=== PATIENT | male | born 1960 | race African-American/Black ===

== ENCOUNTER 2021-01-06 14:29 | Inpatient (IN) | payer SELFPAY ==
[~2021-01-06] VITALS: Ht 177.8 cm; Wt 116.8 kg
[2021-01-06 14:47] VITALS: Ht 177.8 cm; Wt 116.8 kg
[2021-01-06 17:28] LABS: BASOPHIL % 0.5 % (0.2-1.5); PLATELET COUNT 203 x10^3mcL (152-348); RED CELL DISTRIBUTION WIDTH 13.4 % (12.1-16.2)
[2021-01-06 17:57] LABS: ALBUMIN 4.4 g/dL (3.4-5.0); ALT/SGPT 26 U/L (16-63); AST/SGOT 13 U/L (15-37); BILIRUBIN TOTAL 0.8 mg/dL (0.20-1.00); C REACTIVE PROTEIN 0.5 mg/dL (<=0.9); CALCIUM 10.1 mg/dL (8.5-10.1); CARBON DIOXIDE 15.1 mmol/L (21-32); CHLORIDE SERUM 95 mmol/L (98-107); CREATININE SERUM 2.5 mg/dL (0.7-1.3); GFR1 28 mL/min; LACTIC DEHYDROGENASE (LDH) 158 U/L (100-190); SODIUM SERUM 135 mmol/L (136-145)
[2021-01-06 18:20] LABS: ALKALINE PHOSPHATASE 143 U/L (46-116)
[2021-01-06 18:28] LABS: TOTAL PROTEIN, SERUM 9.2 g/dL (6.4-8.2)
[2021-01-06 18:29] LABS: GLUCOSE SERUM 603 mg/dL (74-106); POTASSIUM SERUM 5.6 mmol/L (3.5-5.1)
[2021-01-06 19:54] LABS: UA SPECIFIC GRAVITY >=1.030 (1.005-1.035); microscopic required? YES; urine erythrocyte TRACE (NEGATIVE)
[2021-01-06 21:58] LABS: FREE T4 1.1 ng/dL (0.76-1.46); FREE THYROXINE INDEX 2.5 ug/dL (1.4-4.5); T3 TOTAL 0.56 ng/mL; T4(THYROXINE) 7.5 ug/dL (4.7-13.3)
[2021-01-06 22:10] LABS: CHOLESTEROL/HDL RATIO 8.2
[2021-01-06 22:27] VITALS: BP 134/87
[2021-01-07] VITALS: BP 115/61
[2021-01-07 01:58] LABS: CALCIUM 9.6 mg/dL (8.5-10.1); CARBON DIOXIDE 24.8 mmol/L (21-32); CREATININE SERUM 1.8 mg/dL (0.7-1.3); POTASSIUM SERUM 4.4 mmol/L (3.5-5.1)
[2021-01-07 04:05] VITALS: BP 108/73
[2021-01-07 06:08] LABS: BASOPHIL % 0.5 % (0.2-1.5); PLATELET COUNT 188 x10^3mcL (152-348); RED CELL DISTRIBUTION WIDTH 13.2 % (12.1-16.2)
[2021-01-07 06:29] LABS: CALCIUM 9.5 mg/dL (8.5-10.1); CARBON DIOXIDE 22.9 mmol/L (21-32); CHLORIDE SERUM 113 mmol/L (98-107); CREATININE SERUM 1.3 mg/dL (0.7-1.3); GFR1 > 60 mL/min; GLUCOSE SERUM 89 mg/dL (74-106); MAGNESIUM 2.7 mg/dL (1.8-2.4); PHOSPHOROUS 2.4 mg/dL (2.5-4.9); POTASSIUM SERUM 3.7 mmol/L (3.5-5.1); SODIUM SERUM 148 mmol/L (136-145)
[2021-01-07 09:06] LABS: CARBON DIOXIDE 22.9 mmol/L (21-32); CHLORIDE SERUM 113 mmol/L (98-107); CREATININE SERUM 1.3 mg/dL (0.7-1.3); GFR1 > 60 mL/min; GLUCOSE SERUM 81 mg/dL (74-106); SODIUM SERUM 148 mmol/L (136-145)
[2021-01-07 16:20] VITALS: BP 131/73
[2021-01-07 20:10] VITALS: BP 142/84
[2021-01-08 05:35] VITALS: BP 107/65
[2021-01-08 06:29] LABS: BASOPHIL % 0.8 % (0.2-1.5); PLATELET COUNT 179 x10^3mcL (152-348); RED CELL DISTRIBUTION WIDTH 13.4 % (12.1-16.2)
[2021-01-08 07:06] LABS: CALCIUM 9.8 mg/dL (8.5-10.1); CARBON DIOXIDE 27.6 mmol/L (21-32); CREATININE SERUM 1.4 mg/dL (0.7-1.3); MAGNESIUM 2.2 mg/dL (1.8-2.4); PHOSPHOROUS 3.7 mg/dL (2.5-4.9); POTASSIUM SERUM 4.2 mmol/L (3.5-5.1)
[2021-01-08 07:51] VITALS: BP 144/84
[2021-01-08 12:39] VITALS: BP 132/85
[2021-01-08 16:15] VITALS: BP 130/73
[2021-01-08 21:21] VITALS: BP 132/87
[2021-01-09 06:27] VITALS: BP 118/62
[2021-01-09 06:33] LABS: BASOPHIL % 0.7 % (0.2-1.5); PLATELET COUNT 144 x10^3mcL (152-348); RED CELL DISTRIBUTION WIDTH 13.3 % (12.1-16.2)
[2021-01-09 06:40] LABS: CALCIUM 9.6 mg/dL (8.5-10.1); CARBON DIOXIDE 26.3 mmol/L (21-32); CHLORIDE SERUM 105 mmol/L (98-107); GFR1 > 60 mL/min; GLUCOSE SERUM 239 mg/dL (74-106); MAGNESIUM 1.8 mg/dL (1.8-2.4); PHOSPHOROUS 3.4 mg/dL (2.5-4.9); POTASSIUM SERUM 3.8 mmol/L (3.5-5.1); SODIUM SERUM 140 mmol/L (136-145)
[2021-01-09 09:02] VITALS: BP 141/91
[2021-01-09 13:13] VITALS: BP 113/72
[2021-01-09 17:10] VITALS: BP 132/72
[2021-01-09 21:26] VITALS: BP 100/64
[2021-01-10 06:01] VITALS: BP 113/72
[2021-01-10] MEDS ORDERED: LIPI20 PO ×2 (07:51→19:11)
[2021-01-10] MEDS ORDERED: GLU850 PO ×2 (07:54→19:11)
[2021-01-10] MEDS ORDERED: GLU5 PO ×2 (07:55→19:11)
[2021-01-10] MEDS ORDERED: 1ST TIER UNILE1 EAC1 MC ×2 (07:57→19:11)
[2021-01-10] MEDS ORDERED: EASY COMFORT ALCO70% TOP ×2 (07:58→19:11)
[2021-01-10] MEDS ORDERED: METER-CHECK1 EACH MC ×2 (08:00→19:11)
[2021-01-10] MEDS ORDERED: GLUCOCARD 01 S1 EACH MC ×2 (08:02→19:11)
[2021-01-10 08:45] LABS: BASOPHIL % 1.1 % (0.2-1.5); PLATELET COUNT 144 x10^3mcL (152-348); RED CELL DISTRIBUTION WIDTH 12.9 % (12.1-16.2)
[2021-01-10 08:48] LABS: CALCIUM 9.4 mg/dL (8.5-10.1); CARBON DIOXIDE 23.4 mmol/L (21-32); CHLORIDE SERUM 104 mmol/L (98-107); GFR1 > 60 mL/min; GLUCOSE SERUM 233 mg/dL (74-106); MAGNESIUM 1.5 mg/dL (1.8-2.4); PHOSPHOROUS 3.8 mg/dL (2.5-4.9); POTASSIUM SERUM 3.9 mmol/L (3.5-5.1); SODIUM SERUM 136 mmol/L (136-145)
[2021-01-10 08:58] VITALS: BP 144/89
[2021-01-10 12:59] VITALS: BP 138/82
[2021-01-10 16:35] VITALS: BP 112/74
[2021-01-10 18:43] VITALS: BP 112/74
[2021-01-10 21:11] VITALS: BP 106/67
== END 2021-01-11 00:27 | disposition home or self-care (01) | DRG 637 ==
LOC: ED 14:29 → DU 19:36 → IC 20:55 → DU 01-07 12:16
PROVIDERS: Emergency Medicine; Internal Medicine; ADMIT Family Medicine; ATTEND Family Medicine
DX: E11.10 Type 2 diabetes mellitus with ketoacidosis without coma (principal); N17.0 Acute kidney failure with tubular necrosis; R65.10 Systemic inflammatory response syndrome (SIRS) of non-infectious origin without acute organ dysfunction; E87.0 Hyperosmolality and hypernatremia; Z20.822 Contact with and (suspected) exposure to COVID-19; E87.5 Hyperkalemia; D75.1 Secondary polycythemia; E86.0 Dehydration; R74.01 Elevation of levels of liver transaminase levels; E11.22 Type 2 diabetes mellitus with diabetic chronic kidney disease; N18.2 Chronic kidney disease, stage 2 (mild); E78.5 Hyperlipidemia, unspecified; E66.9 Obesity, unspecified; Z83.3 Family history of diabetes mellitus; Z68.36 Body mass index [BMI] 36.0-36.9, adult; Z71.3 Dietary counseling and surveillance; Z90.49 Acquired absence of other specified parts of digestive tract; Z79.899 Other long term (current) drug therapy
CPT/HCPCS: 36600; 76770; 82962; 83880; 84439; 85378; 87804; G0378; J1644; J1815; J2405; J3475; J7030; J7050; J8597; U0003